=== PATIENT | female | born 1990 | race Caucasian/White ===

== ENCOUNTER 2021-02-09 12:18 | Outpatient (REF) | payer MEDICAID, SELFPAY ==
--- NOTE | 2021-02-09 11:45 | PAPFT_PTH ---
PATIENT: Florinda Cook LOC: [facility] U#:[id number] AGE/SX: 30/F ROOM: RE02/09/[address]: Sarita Gonzalez NP : 1990 BED: DIS: 02/09/2021 SPEC #: [id number] RECD: 02/09/21 13:05 STATUS: NATALI WILKINSON #: [id number] CHENCHO: 02/09/21 11:[address]: Sarita Gonzalez NP DEPT: FOR[facility]LY [facility], [facility]–1983 Cytology RECD BY: Stefania Rivera ENTERED: 02/09/21 13:06 SP TYPE: PAPFT OTHR DR: Kenya Fall APRN Tissues: 1 - CX/ENDOCX FOR PAP SMEARS Procedures: PAP THIN PREP/[facility] Screening HPV DNA PROBE Comments: [id number]
== END 2021-02-09 12:19 | disposition home or self-care (01) ==
LOC: LBN 12:18
PROVIDERS: PCP Nurse Practitioner Adult Health; Visit Provider Nurse Practitioner Women's Health
DX: Z12.4 Encounter for screening for malignant neoplasm of cervix (principal); Z11.51 Encounter for screening for human papillomavirus (HPV)
CPT/HCPCS: 88142; 87624

== ENCOUNTER 2021-08-07 14:45 | Outpatient (REF) | payer MEDICAID, SELFPAY ==
[2021-08-07 18:39] LABS: Bilirubin Negative (Negative); Blood Negative (Negative); Clarity Clear (Clear); Glucose Negative (Negative); Ketones Negative (Negative); Leukocyte Esterase Negative (Negative); Nitrite Negative (Negative); Specific Gravity >= 1.030 (1.005-1.025); Urobilinogen 0.2 EU/dL (Up TO 0.2); pH 6.5 (5-8)
[2021-08-07 18:57] LABS: Bacteria Few HPF (Negative); C & S Indicated? No/Sq. Contamination; Casts Negative LPF (Negative); Crystals Negative HPF (Negative); Epithelial Cells Moderate HPF (Negative); Mucus Negative (Negative); Other Cells Negative (Negative); RBC Negative HPF (0-2)
== END 2021-08-07 14:46 | disposition home or self-care (01) ==
LOC: LBN 14:45
PROVIDERS: PCP Nurse Practitioner Adult Health; Visit Provider Nurse Practitioner Adult Health
DX: R30.0 Dysuria (principal)
CPT/HCPCS: 81003; 81015

== ENCOUNTER 2022-02-12 13:40 | Outpatient (REF) | payer MEDICAID, SELFPAY ==
--- NOTE | 2022-02-12 12:00 | PAPFT_PTH ---
PATIENT: Florinda Cook LOC: [facility] U#:[id number] AGE/SX: 31/F ROOM: RE02/12/[address]: Radha Yeh : 1990 BED: DIS: 02/12/2022 SPEC #: [id number] RECD: 02/12/22 17:33 STATUS: NATALI REDeborah #: [id number] CHENCHO: 02/12/22 12:[address]: Radha Yeh DEPT: [facility] Cytology RECD BY: Stefania Rivera ENTERED: 02/12/22 17:33 SP TYPE: PAPFT SHAMAR DR: Kenya Fall APRN Tissues: 1 - CX/ENDOCX FOR PAP SMEARS Procedures: PAP THIN PREP/UVM Screening HPV DNA PROBE Comments: [id number]
== END 2022-02-12 13:41 | disposition home or self-care (01) ==
LOC: LBN 13:40
PROVIDERS: PCP Nurse Practitioner Adult Health; Visit Provider Advanced Practice Midwife
DX: Z12.4 Encounter for screening for malignant neoplasm of cervix (principal); Z11.51 Encounter for screening for human papillomavirus (HPV)
CPT/HCPCS: 88142; 87624

== ENCOUNTER 2023-04-01 09:57 | Outpatient (REF) | payer OTHER, SELFPAY ==
--- NOTE | 2023-04-01 09:00 | PAPFT_PTH ---
PATIENT: Florinda Cook LOC: [facility] U#:[id number] AGE/SX: 32/F ROOM: RE04/01/[address]: Radha Yeh : 1990 BED: DIS: 04/01/2023 SPEC #: [id number] RECD: 04/01/23 13:06 STATUS: NATALI REDeborah #: [id number] CHENCHO: 04/01/23 09:[address]: Radha Yeh DEPT: [facility] Cytology RECD BY: Stefania Rivera ENTERED: 04/01/23 13:06 SP TYPE: PAPFT SHAMAR DR: Kenya Fall APRN Tissues: 1 - CX/ENDOCX FOR PAP SMEARS Procedures: PAP THIN PREP/UVM Screening HPV DNA PROBE Comments: [id number]
== END 2023-04-01 09:58 | disposition home or self-care (01) ==
LOC: LBN 09:57
PROVIDERS: PCP Nurse Practitioner Adult Health; Visit Provider Advanced Practice Midwife
DX: Z12.4 Encounter for screening for malignant neoplasm of cervix (principal); Z11.51 Encounter for screening for human papillomavirus (HPV)
CPT/HCPCS: 88142; 87624

== ENCOUNTER 2024-06-29 00:52 | Outpatient (CLI) | payer OTHER, SELFPAY ==
[2024-06-29 16:55] LABS: Abs Immature Grans 0.04 10^3/uL (0.0-0.06); Absolute Eosinophil Count 0.18 10^3/uL (0.0-0.7); Absolute Lymphocyte Count 2.79 10^3/uL (1.2-3.4); Absolute Monocyte Count 0.92 10^3/uL (0.1-0.8); Absolute Neutrophil Count 7.78 10^3/uL (1.2-6.7); Basophils % 0.3 %; Eosinophils % 1.5 %; HGB 14.6 g/dL (11.2-15.7); Immature Grans % 0.3 %; Lymphocytes % 23.8 %; MCH 31.5 pg (27.0-33.0); MCHC 34.8 % (32.0-36.0); MCV 91 fL (80-95); MPV 9.9 fL (8.0-11.0); Monocytes % 7.8 %; Neutrophils % 66.3 %; Platelet Count 242 10^3/uL (130-400); RBC 4.64 10^6/uL (3.93-5.22); RDW 14.2 % (11.7-14.6); RDW-SD 46.7 fL; WBC 11.74 10^3/uL (4.4-10.8)
[2024-06-29 16:58] LABS: Absolute Basophil Count 0.04 10^3/uL (0.0-0.2)
[2024-07-01 13:28] LABS: HIV-1/2 Ag & Ab Screen Negative (Negative)
[2024-07-02 09:58] LABS: Hepatitis B Surface Ag Negative (Negative)
[2024-07-02 10:33] LABS: Hepatitis C Ab w Rflx HCV PCR Negative (Negative)
[2024-07-02 11:35] LABS: Varicella IgG Antibody Positive (See Note)
[2024-07-02 13:24] LABS: Rubella IgG Ab (UVM) Positive (See Note)
[2024-07-03 19:52] LABS: Syphilis IgG w/Reflex Nonreactive (Nonreactive)
== END 2024-06-29 00:53 | disposition home or self-care (01) ==
PROVIDERS: PCP Nurse Practitioner Adult Health; Visit Provider Advanced Practice Midwife
DX: Z34.91 Encounter for supervision of normal pregnancy, unspecified, first trimester (principal)
CPT/HCPCS: 36415; 86787; 86803; 86850; 86900; 86901; 87340; 87389; 85025; 86762; 86780

== ENCOUNTER 2024-06-29 16:12 | Outpatient (REF) | payer OTHER, SELFPAY ==
[2024-07-02 12:50] LABS: Chlamydia Result Negative (Negative); GC Result Negative (Negative)
== END 2024-06-29 16:13 | disposition home or self-care (01) ==
LOC: LBN 16:12
PROVIDERS: PCP Nurse Practitioner Adult Health; Visit Provider Advanced Practice Midwife
DX: Z34.91 Encounter for supervision of normal pregnancy, unspecified, first trimester (principal)
CPT/HCPCS: 87491; 87591

== ENCOUNTER 2024-07-26 01:35 | Outpatient (CLI) | payer OTHER, SELFPAY ==
[2024-07-30 16:31] LABS: AFP 22.3 ng/mL; Calculated age at EDD 32 years; Cigarette smoking status non-Smoker; GA used in risk estimate Scan estimate; INHIBIN 179 pg/mL; IVF Pregnancy No; Initial or repeat testing Initial testing; Insulin dependent diabetes No; Maternal Weight 136 lbs; Number of Fetuses 1; Prev Down(T21)/Trisomy Pregnan No; Prev Pregnancy w/NTD No; RECOMMENDED FOLLOW UP None.; Results Summary Normal risk; hCG, TOTAL 25.8 IU/mL; uE3 0.87 ng/mL; uE3 MoM 0.86 MoM
== END 2024-07-26 01:36 | disposition home or self-care (01) ==
PROVIDERS: PCP Nurse Practitioner Adult Health; Visit Provider Advanced Practice Midwife
DX: Z34.91 Encounter for supervision of normal pregnancy, unspecified, first trimester (principal)
CPT/HCPCS: 36415; 81511

== ENCOUNTER 2024-10-19 01:04 | Outpatient (CLI) | payer OTHER, SELFPAY ==
[2024-10-19 15:18] LABS: HCT 36.8 % (36.0-46.0); HGB 12.6 g/dL (11.2-15.7); MCH 32.4 pg (27.0-33.0); MCHC 34.2 % (32.0-36.0); MCV 95 fL (80-95); MPV 10.2 fL (8.0-11.0); Platelet Count 181 10^3/uL (130-400); RBC 3.89 10^6/uL (3.93-5.22); RDW 13.1 % (11.7-14.6); RDW-SD 45.5 fL; WBC 12.26 10^3/uL (4.4-10.8)
[2024-10-19 16:08] LABS: Glucose,1 Hr (Glucola) 90 mg/dL (80-140)
== END 2024-10-19 01:05 | disposition home or self-care (01) ==
LOC: LBO 01:05
PROVIDERS: PCP Nurse Practitioner Adult Health; Visit Provider Advanced Practice Midwife
DX: Z34.92 Encounter for supervision of normal pregnancy, unspecified, second trimester (principal)
CPT/HCPCS: 36415; 82950; 85027

== ENCOUNTER 2024-12-17 19:35 | Outpatient (REF) | payer OTHER, SELFPAY | END 2024-12-17 19:36 | disposition home or self-care (01) | LOC: LBN 19:35 | PROVIDERS: PCP Nurse Practitioner Adult Health; Visit Provider Advanced Practice Midwife | DX: Z34.93 Encounter for supervision of normal pregnancy, unspecified, third trimester (principal) | CPT/HCPCS: 87081 ==

== ENCOUNTER 2025-01-09 05:20 | Inpatient (IN) | payer OTHER, SELFPAY ==
[2025-01-09] VITALS (14 sets, daily range): BP systolic 110–140; BP diastolic 71–95; PULSE 59–88; RESP 17; TEMP 36.7–37.4; O2SAT 98
[2025-01-09 06:15] LABS: Abs Immature Grans 0.08 10^3/uL (0.0-0.06); HCT 37.4 % (36.0-46.0); HGB 12.9 g/dL (11.2-15.7); Immature Grans % 0.5 %; MCH 31.9 pg (27.0-33.0); MCHC 34.5 % (32.0-36.0); MCV 93 fL (80-95); MPV 10.1 fL (8.0-11.0); Platelet Count 223 10^3/uL (130-400); RBC 4.04 10^6/uL (3.93-5.22); RDW 13.6 % (11.7-14.6); RDW-SD 46.1 fL; WBC 14.55 10^3/uL (4.4-10.8)
[2025-01-09] MEDS: Oxytocin 10 UNITS/ML VIAL IM (08:43)
[2025-01-09] MEDS: Lidocaine 1% Multi-Dose 20 ML VIAL IJ (09:00)
[2025-01-09] MEDS: miSOPROStol 200 MCG TAB 400 MCG SL (09:00)
--- NOTE | 2025-01-09 10:42 | W.PM.OBHPL1 ---
Date of service: 01/09/25 Time of Service: 10:42 Assessment and Plan Assessment and plan (1) Spontaneous onset of labor: Status: Acute Assessment and plan: Admit to Center and routine admission labs. Comfort measures. Anticipate . OB-HPI Labor/Delivery History of Present Illness Reason for Visit: Term Labor Chief Complaint: Uterine Contractions. ROWAN Calculator Estimated Delivery Date Method WG Current Estimate 01/10/25 Ultrasound #1 Other Estimates 01/14/25 LMP (Uncertain) Infant Delivery Date-Baby A 01/09/25 39w 6d Comments: Florinda called at 0500 and reported strong regular contractions. She came in and was admitted in active labor. She was on her hands and knees on the floor and coping well with contractions with the support of her partner Franki. She was feeling a strong urge to bear down on my arrival. History of Present Expected Delivery Route/Plan - CNM FOB - Franki (first child together) BG (per u/s) Prefers low intervention . GBS negative Specific Issues/Plan 1. hx LEEP x 2, pap UTD and HPV neg 2. History cardiac arrhythmia with short PT interval, Holter+EKG in 2020,EKG scanned in chart, record release re: cardiology note. 2a. reviewed cardiology notes. PVCs diagnosed. Echocardiogram 2020 - trace mitral and tricuspid valve regurgitation. Offered cardiology consult, pt declines at this time 3. declines cell free DNA testing, Quad screen negative Assessment: History Reviewed & Current PFSH All Active Problems (Updated 01/09/25 @ 11:06 by Radha Yeh CNM) Spontaneous onset of labor (Acute) H/O LEEP (Acute) x2, most recent 2020 (Acute) Medical History (Updated 01/09/25 @ 11:06 by Radha Yeh CNM) Tricuspid regurgitation Mitral regurgitation Shortened [place] interval [place] [facility] consult (note pending) Cardiac arrhythmia, unspecified [place] consult- PVCs History of abnormal cervical Pap smear (10/04/16) Lump in neck (~07/2021) L--suspect benign lymph node Natural family planning Precordial catch syndrome M/S chest pain in childhood Surgical History (Updated 07/02/24 @ 14:29 by Shanna Echeverria CNM) History of cervical biopsy (05/12/17) w/ Loop Electrode Excision History of colposcopy (~10/2016) Family History (Updated 11/23/24 @ 10:19 by Radha Yeh CNM) Maternal Uncle Alcohol use disorder Paternal Grandmother Cancer Uterine Heart disease stints placed Stroke Father Hypertension Other Asthma Social History (Updated 06/29/24 @ 15:10 by Shanna Echeverria CNM) Smoking/Tobacco Use Status: Never Smoking risk assessment performed?: Yes Alcohol Intake: former Drug use: Never Substance use type: does not use Adopted: No Caregiver/Support person: No Foster care: No Household members: spouse Housing: house Number of Children: 0 number of grandchildren: 0 Communication Needs: None Education Level: college Details: DDS Do you need help understanding health information?: Never 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 and animals: Yes (1) Pets and animals: dog(s) Sexually active: Yes Do you think of yourself as: straight/heterosexual Current gender identity: female What is your relationship status?: How often do you talk on the phone with friends or family?: three or more times per week How often do you get together with friends or relatives?: twice per week Panel score (0-1 are the most socially isolated patients): 2 What type of physical activity do you participate in: walking and other Details: meet rai Duration: 30-45 minutes/day Frequency: 3-4 times per week Scarlett/Orthodoxy: None Special scarlett needs: No Agree to transfusion: Yes Seatbelt use: sometimes Helmet use: Yes Helmet use: always Drive intox or ride w/intox 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 air 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 operator: No Do you feel safe at home: Yes Female Reproductive History Menstrual control method: none History History 1 Para 0 Hx # Term Pregnancies 0 Multiple births 0 Hx # Pregnancies 0 Ectopic pregnancies 0 AB induced 0 Hx Number of Living Children 0 AB spontaneous 0 Meds Allergies and Home Medications Allergies Allergy/AdvReac Type Severity Reaction Status Date / Time No Known Allergies Allergy Verified 01/04/25 14:13 Home Medications Medication Instructions Recorded Confirmed Type Unknown [No Known Home Meds] 12/07/24 01/09/25 History Exam Physical Exam Vital signs: Temp Pulse BP 98.4 F 71 137/88 01/09/25 07:27 01/09/25 10:21 01/09/25 10:21 Vital Signs Reviewed: Yes Constitutional Constitutional: moderate distress Detailed Labor and Delivery Exam Dilation: 8 Effacement (%): 100 station: +1 Cervix position: mid Consistency: soft Day Score: Cervical Points Exam 0 1 2 3 Dilation Closed 1-2cm 3-4 cm 5-6cm Effacement 0-30% 40-50% 60-70% 80% Consistency Firm Medium Soft Station -3 -2 -1,0 +1,+2 Position Posterior Mid Anterior Amniotic Membrane Status: Ruptured Rupture Method: Spontaneous Amniotic Fluid: Clear Pooling: Positive Monitor Mode: External Contraction Frequency(min): every 2-3 Contraction Duration(sec): 60 Contraction Intensity: Strong Fetus A Heart Rate Baseline: 130 Monitor Accelerations: 15 X 15 Monitor Decelerations: None Variability: Moderate (6-25 BPM) Presentation: Cephalic Categories: Category I Est. Weight: 7 Date of Membrane Rupture: 01/09/25 Time of Membrane Rupture: 08:40 HEENT Exam HEENT Exam: Normal Respiratory Exam Respiratory Exam: Normal Cardiovascular Exam Cardiovascular Exam: Normal Abdominal Exam Abdominal Exam: Normal Exam Exam: Normal Extremities Exam Extremities Exam: Normal Skin Exam Skin Exam: Normal Psychiatric Exam Psychiatric Exam: Normal Results Results Group Beta Strep: Negative Blood Type: A+ Rubella Status: Immune Varicella Immunity: Immune Abnormal Lab Findings: Abnormal Labs 01/09/25 06:05 WBC 14.55 H Absolute Neutrophils 11.57 H Absolute Monocytes 0.97 H Risk Assessment Risk for Shoulder Dystocia Historical/Initial OB: NEGATIVE FOR: Pelvic Abnormality, Pre- BMI>30, Previous Shoulder Dystocia or Previous Macrosomia 36 Weeks: NEGATIVE FOR: Current Gestational DM, EFW>4500gms or Maternal Weight Gain>40lbs 40 Weeks: NEGATIVE FOR: EFW> 4500 gms, Maternal Weight Gain >40lb or Post Dates Increased Risk?: No Risk for Pre-Eclampsia Date Initiated/Initials: 06/29 RG Yes, if one or more: NEGATIVE FOR: Hx Pre-E/Gest HTN, Chronic HTN, Multiple Gestation, Pre-gestational DM, Renal Disease, Systemic Lupus or APA Syndrome Yes, if 2 or more: POSITIVE FOR: Nulliparity; NEGATIVE FOR: Age>= 35 yrs, >10yr btwn pregnancies, BMI>30, ethinicty, Mother/Sister w/ Pre-E or Previous IUGR Risk for Post- Hemorrhage Initial: NEGATIVE FOR: Multiple Gestation, Previous PPH, Known Clotting Deficiency, Grand Multiparity or Anticoagulation 36 Weeks: NEGATIVE FOR: Anemia, hgb<10, Low platelets(thrombocytopenia), Gestational HTN or Pre-E, Polyhydraminios or EFW>4500gms 40 Weeks: NEGATIVE FOR: Anemia, hgb<10, Low platelets (thrombocytopenia), Gestation HTN or Pre-E, Polyhydraminios or EFW>4500gms At Risk?: No Risks Reviewed Risks Reviewed Upon Admission: Yes
--- NOTE | 2025-01-09 11:07 | W.OBDELIVERY ---
Date of service: 01/09/25 Time of Service: 11:08 OB Labor/ Delivery Information Baby A Delivery Delivery Method: Spontaneaous Presentation: Cephalic Vertex Position: Right Occipital Anterior Cord Description-Baby A: 3 Vessels Cord Description Comment: loose nuchal cord Amniotic Fluid: Clear Estimated Blood Loss: 350 Delivery Outcome: Liveborn Infant Complications: none Infant Transferred: Remains with Mother Note: FHTs 130s during first stage of labor. FHTs 130s in second stage. She progressed to full dilation and began pushing. Second stage huddle was done. There was an episode of ftal bradycardia and blanche moved to a lunge position for auscultation of heart tones. The baby delivered quickly and was placed in mother's arms and dried and stimulated. Spontaneous cry. Cord was clamped and cut by the baby's father . The placenta delivered spontaneously and appears to by intact with a three vessel cord. Pitocin 10 units was administered before delivery of the placenta. The perineum was inspected and a small second degree laceration was repaired. The uterus was noted to be boggy after repair and clots were expressed. misoprostol 400 mcg PO was given The baby did breastfeed. After delivery, Mother and baby and father of the baby were stable and bonding well in the delivery room and there were no complications. Providers Nurse Medical Information Officer: Radha Yeh Nurse: Carmen Cha Labor/Delivery Information Number of Babies in Womb: 1 Steroids Given: None Reason Steroids Not Administered: N/A Group Beta Strep: Negative Antibiotics Administered: No Rubella Status: Immune Blood Type: A+ Varicella Immunity: Immune Born En Route: No Maternal Complications: None Shoulder Dystocia: No Stages of Labor Onset of Labor Date: 01/08/25 Onset of Labor Time: 21:00 Complete Dilatation Date: 01/09/25 Complete Dilatation Time: 08:20 Labor - Stage 1 Duration: 11 hours and 20 minutes ROM Baby A: 01/09/25 ROM Baby A: 08:40 ROM Total Time- Baby A: [id number] Infant Delivery Date-Baby A: 01/09/25 Infant Delivery Time-Baby A: 08:40 Labor Stage 2 Duration: 20 minutes Placenta Delivery Date-Baby A: 01/09/25 Placenta Delivery Time-Baby A: 08:45 Labor-Stage 3 Duration: 5 minutes Total Length of Labor-Baby A: 11 hours and 40 minutes Placenta Cultured: No Placenta Status: Delivered Baby A Infant Gender: Female Gestational Status: Early Term (37-38.6 wks) Gestational Age in Weeks/Days: 39 Weeks and 6 Days Interventions Repair of Laceration Type: Perineal, Laceration Extension: Second Degree. Sponge Count Correct: No Sponges Placed in Vagina, Sharp Count Correct: Yes. Laceration Repair Note: second degree laceration repaired with 3-0 vicryl suture under local anesthetic. one additional deep suture placed to reapproximate the perineum. one superficial interrupted suture placed in small left labial extension.
[2025-01-09] MEDS: Hamamelis Leaf/Glycerin 100 EACH BOX PR (11:17)
[2025-01-09] MEDS: Dibucaine 1% 28 GM TUBE TP (11:18)
[2025-01-10 06:59] LABS: Abs Immature Grans 0.09 10^3/uL (0.0-0.06); HCT 38.1 % (36.0-46.0); HGB 13.0 g/dL (11.2-15.7); Immature Grans % 0.6 %; MCH 31.9 pg (27.0-33.0); MCHC 34.1 % (32.0-36.0); MCV 93 fL (80-95); MPV 10.2 fL (8.0-11.0); Platelet Count 210 10^3/uL (130-400); RBC 4.08 10^6/uL (3.93-5.22); RDW 13.7 % (11.7-14.6); RDW-SD 46.4 fL; WBC 13.97 10^3/uL (4.4-10.8)
[2025-01-10 08:00] VITALS: BP 130/97; PULSE 86; TEMP 37
--- NOTE | 2025-01-10 08:37 | W.PM.OBPNV1 ---
Date of service: 01/10/25 Time of Service: 08:37 Assessment and Plan Assessment and plan (1) Term of female : Status: Acute Assessment and plan: Caring for baby independently. Pain is managed well with oral analgesics. Voiding without difficulty. well. A - stable mother and baby , Post day 1 P - Discharge to home possibly this afternoon pending pediatrics discharge . Routine post instructions. Follow up at [facility]. Subjective Subjective Interval history: Florinda had yesterday and she is feeling well. her baby. Patient's Mood: great [place] baby status: Doing well feeding status: Exclusively breast feeding Exam Physical Exam Vital signs: Temp Pulse Resp BP Pulse Ox 98.2 F 59 L 17 110/71 98 01/09/25 19:30 01/09/25 19:30 01/09/25 19:30 01/09/25 19:30 01/09/25 19:30 Vital Signs Reviewed: Yes Constitutional Constitutional: no acute distress HEENT Exam HEENT Exam: Normal Respiratory Exam Respiratory Exam: Normal Cardiovascular Exam Cardiovascular Exam: Normal Fundal Exam Fundus: Below Umbilicus and Firm Exam Perineum: Bruising External: Present erythema Extremities Exam Extremity Exam: Normal Back/Spine/Pelvis Exam Back Exam: Normal Skin Exam Skin Exam: Normal Psychiatric Exam Psychiatric Exam: Normal Results Hemoglobin/Hematocrit: Hgb 13.0 g/dL (11.2-15.7) 01/10/25 06:31 Hct 38.1 % (36.0-46.0) 01/10/25 06:31 Abnormal Lab Findings: Abnormal Labs 01/09/25 01/10/25 06:05 06:31 WBC 14.55 H 13.97 H Absolute Neutrophils 11.57 H 10.37 H Absolute Monocytes 0.97 H 1.05 H
--- NOTE | 2025-01-10 14:13 | DSE_ITS ---
Date of service: 01/10/25 Time of Service: 14:13 DS: Diagnosis Discharge Diagnosis (1) Term of female : Status: Acute Discharge Plan Disposition Patient Disposition: Home Condition: Good Discharge Details Reason For Visit: Term Labor Admit Date/Time: 01/09/25 05:20 Admit Provider: Radha Yeh Attending Provider: Radha Yeh Primary Care Provider: Kenya Fall Hospital Course Hospital Course: on day of admission, nml course though noted mild range BP on PPD#1, no severe features or symptoms. Pt desires discharge to home, will request pt return for BP check over the weekend. Home Meds and New Rx's Prescriptions: No Action No Known Home Meds Discharge Instructions Instructions: Vaginal Delivery (DC), What to Watch for After You Have a Baby, Taking Care of Yourself After You Have a Baby Additional Instructions: Please keep your 2 & 6 wk appointments with the midwives, call for any and all concerns. Activity:: Activity as Tolerated Equipment/Supplies:: No Equipment Needed Diet:: Normal Diet OB:DS Summary Summary Vaginal Delivery Method: Spontaneaous Episiotomy Description: None Laceration Description: Perineal Laceration Extension: Second Degree Contraception Discussed Contraception Discussed: Yes Contraceptive Plan: Not planning to use, Infant Gender-Baby A: Female weight: 6 lb 0.298 oz Status at Discharge Functional status at discharge: independent ambulation Overall status at discharge: patient is progressing back to baseline Mental Status: mental status grossly normal Speech and Movement: speech and movement normal and speech clear Mood: congruent mood Affect: normal affect Exam Physical Exam Vital signs: Temp Pulse Resp BP Pulse Ox 98.6 F 86 17 130/97 H 98 01/10/25 08:00 01/10/25 08:00 01/09/25 19:30 01/10/25 08:00 01/09/25 19:30 Constitutional Constitutional: no acute distress HEENT Exam HEENT Exam: Normal Respiratory Exam Respiratory Exam: Normal Cardiovascular Exam Cardiovascular Exam: Normal Fundal Exam Fundus: Below Umbilicus and Firm Exam Perineum: Bruising External: Present erythema Extremities Exam Extremity Exam: Normal Back/Spine/Pelvis Exam Back Exam: Normal Skin Exam Skin Exam: Normal Psychiatric Exam Psychiatric Exam: Normal PFSH All Active Problems (Updated 07/02/24 @ 14:29 by Shanna Echeverria CNM) Term of female (Acute) H/O LEEP (Acute) x2, most recent 2019 Medical History (Updated 01/10/25 @ 08:38 by Radha Yeh CNM) Tricuspid regurgitation Mitral regurgitation Shortened [place] interval [place] [facility] consult (note pending) Cardiac arrhythmia, unspecified [place] cardi[place] consult- PVCs History of abnormal cervical Pap smear (10/04/16) Lump in neck (~07/2021) L--suspect benign lymph node Natural family planning Precordial catch syndrome M/S chest pain in childhood Surgical History (Updated 07/02/24 @ 14:29 by Shanna Echeverria CNM) History of cervical biopsy (05/12/17) w/ Loop Electrode Excision History of colposcopy (~10/2016) Family History (Updated 11/23/24 @ 10:19 by Radha Yeh CNM) Maternal Uncle Alcohol use disorder Paternal Grandmother Cancer Uterine Heart disease stints placed Stroke Father Hypertension Other Asthma Social History (Updated 06/29/24 @ 15:10 by Shanna Echeverria CNM) Smoking/Tobacco Use Status: Never Smoking risk assessment performed?: Yes Alcohol Intake: former Drug use: Never Substance use type: does not use Adopted: No Caregiver/Support person: No Foster care: No Household members: spouse Housing: house Number of Children: 0 number of grandchildren: 0 Communication Needs: None Education Level: college Details: DDS Do you need help understanding health information?: Never 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 and animals: Yes (1) Pets and animals: dog(s) Sexually active: Yes Do you think of yourself as: straight/heterosexual Current gender identity: female What is your relationship status?: How often do you talk on the phone with friends or family?: three or more times per week How often do you get together with friends or relatives?: twice per week Panel score (0-1 are the most socially isolated patients): 2 What type of physical activity do you participate in: walking and other Details: meet rai Duration: 30-45 minutes/day Frequency: 3-4 times per week Scarlett/Jehovah'S Witness: None Special scarlett needs: No Agree to transfusion: Yes Seatbelt use: sometimes Helmet use: Yes Helmet use: always Drive intox or ride w/intox bull driver: No Do you feel safe at home: Yes Female Reproductive History Menstrual control method: none History History 1 Para 0 Hx # Term Pregnancies 0 Multiple births 0 Hx # Pregnancies 0 Ectopic pregnancies 0 AB induced 0 Hx Number of Living Children 0 AB spontaneous 0 DS: Data Vitals/I&O Vitals and I&O: Vital Signs Temperature 98.6 F 01/10/25 08:00 Temperature Source Oral 01/10/25 08:00 Pulse 86 01/10/25 08:00 Pulse Rhythm Regular 01/09/25 19:30 Respiratory Rate 17 01/09/25 19:30 Respiratory Depth Normal 01/09/25 19:30 Blood Pressure 130/97 H 01/10/25 08:00 Blood Pressure Mean 108 01/10/25 08:00 Pulse Oximetry 98 01/09/25 19:30 Intake & Output 01/09/25 01/10/25 01/10/25 23:59 11:59 23:59 Output Total 800 / 1400 Balance -800 / -1400 Output: Urine 800 / 1400 Other: Urine Color Yellow Data Completed and Pending Pending Labs at Discharge: 01/09/25 01/10/25 06:05 06:31 WBC 14.55 H 13.97 H RBC 4.04 4.08 Hgb 12.9 13.0 Hct 37.4 38.1 MCV 93 93 MCH 31.9 31.9 MCHC 34.5 34.1 RDW 13.6 13.7 Plt Count 223 210 MPV 10.1 10.2 Immature Gran % 0.5 0.6 Neutrophils % 79.5 74.2 Lymphocytes % 12.2 16.5 Monocytes % 6.7 7.5 Eosinophils % 0.8 0.8 Basophils % 0.3 0.4 Nucleated RBC % 0.0 0.0 Absolute Neutrophils 11.57 H 10.37 H Absolute Lymphocytes 1.78 2.31 Absolute Monocytes 0.97 H 1.05 H Absolute Eosinophils 0.12 0.11 Absolute Basophils 0.04 0.06 ABO/Rh A Positive Antibody Screen NEGATIVE
== END 2025-01-10 14:15 | disposition home or self-care (01) | DRG 807 ==
PROVIDERS: Admitting Provider Advanced Practice Midwife; PCP Nurse Practitioner Adult Health; Visit Provider Advanced Practice Midwife
DX: O99.42 Diseases of the circulatory system complicating childbirth (principal); Z37.0 Single live birth; Z3A.39 39 weeks gestation of pregnancy; I49.3 Ventricular premature depolarization; I08.1 Rheumatic disorders of both mitral and tricuspid valves; O69.81X0 Labor and delivery complicated by cord around neck, without compression, not applicable or unspecified; O70.1 Second degree perineal laceration during delivery
CPT/HCPCS: 36415; 86850; 86900; 86901; 85025; J2003; J2590